=== PATIENT | male | born 1965 | race Caucasian/White ===

== ENCOUNTER 2020-04-21 01:48 | Emergency (ER) | payer MEDICAID ==
[~2020-04-21] VITALS: Ht 177.8 cm; Wt 68.2 kg
[~2020-04-21 01:48] MED LIST: ATOR-2 PO; CLOP75TA15 PO; METO-395 PO
[2020-04-21 01:55] VITALS: BP 128/84
== END 2020-04-21 05:28 | disposition home or self-care (01) ==
LOC: ER 01:49
DX: F20.9 Schizophrenia, unspecified (principal); Z76.0 Encounter for issue of repeat prescription; Z59.0 Homelessness; Z79.899 Other long term (current) drug therapy; Z88.5 Allergy status to narcotic agent
CPT/HCPCS: 99281; 99283